=== PATIENT | female | born 1930 | race Caucasian/White ===

== ENCOUNTER → 2020-03-18 | Outpatient (CLI) | payer MEDICARE | LOC: M LAB 11:40 | PROVIDERS: ATTEND Internal Medicine Gastroenterology | DX: K86.2 Cyst of pancreas (principal) ==

== ENCOUNTER → 2020-04-18 | Outpatient (CLI) | payer MEDICARE ==
[~2020-04-18] MED LIST: PROHANCE 279.3MG/ML 15ML VIAL As Ordered ONE
--- NOTE | 2020-04-18 12:39 | REP ---
INDICATION: PANCREATIC TAIL LESION. COMPARISON: CT 09/11/2019. TECHNIQUE: Multiple sequences obtained in the axial coronal planes prior to and following the intravenous administration of 11 mL ProHance. FINDINGS: There is an oval cystic structure in the region of the pancreatic head. It measures approximately 2.0 x 1.4 cm and appears similar to the prior CT scan. There are few thin internal septations. There is no internal enhancing nodule. It appears to communicate with the pancreatic duct. This would indicate that it represents an intraductal papillary mucinous neoplasm. A lobulated septated cystic structure is seen in the peripheral body of the pancreas measuring approximately 2.1 x 1.6 cm. There are thin internal septations. There is no internal enhancing nodule. I suspect this communicates with the pancreatic duct, again likely representing intraductal papillary mucinous neoplasm. In the tail of the pancreas there is a curvilinear cystic structure with a maximum width of 3 mm and a maximum length of 1.2 cm. This may represent 2 adjacent dilated side ducts communicating with the main pancreatic duct. There is no significant dilatation of the pancreatic duct itself. The proximal common bile duct is somewhat ectatic measuring 1 cm in diameter. The gallbladder is grossly unremarkable. A subcentimeter cyst is seen in the superior right lobe of the liver. Spleen is normal in size with no intrinsic abnormality. There is mild left adrenal gland thickening. No adrenal gland mass is seen. A subcentimeter cyst is seen in the mid left kidney. I see no adenopathy or free fluid in the abdomen. IMPRESSION: A cystic structure in the region of the pancreatic head contains a few thin internal septations but no enhancing internal nodule, measuring 2.1 cm in maximum diameter. It appears to communicate with the pancreatic duct, compatible with intraductal papillary mucinous neoplasm. A similar cystic structure seen in the peripheral body of the pancreas 2.1 cm in maximum diameter. Given that there are no enhancing internal nodules and no significant pancreatic duct dilatation, as well as the relatively small size of these cystic nodules, recommend follow-up MRI in 1 year. <Electronically signed by Rg Cornejo > 04/18/20 [id number]
== END ==
LOC: M RAD 10:14
PROVIDERS: ATTEND Internal Medicine Gastroenterology
DX: K86.2 Cyst of pancreas (principal)
CPT/HCPCS: 74183; A9576